=== PATIENT | female | born 1980 | race Caucasian/White ===

== ENCOUNTER → 2024-03-12 06:50 | Outpatient (REF) | payer OTHER, SELFPAY | LOC: HWWDC 06:50 | PROVIDERS: ATTENDING PHYSICIAN Family Medicine | DX: Z12.31 Encounter for screening mammogram for malignant neoplasm of breast (principal) | CPT/HCPCS: 77063; 77067 ==

== ENCOUNTER → 2025-02-25 10:16 | Outpatient (REF) | payer OTHER, SELFPAY | LOC: HWRAD 10:16 | PROVIDERS: ATTENDING PHYSICIAN Student in an Organized Health Care Education/Training Program; FAMILY PHYSICIAN Family Medicine | DX: N92.1 Excessive and frequent menstruation with irregular cycle (principal) | CPT/HCPCS: 76830; 76856 ==

== ENCOUNTER → 2025-03-11 07:03 | Outpatient (REF) | payer OTHER, SELFPAY | LOC: RAD 07:03 | PROVIDERS: FAMILY PHYSICIAN Family Medicine | DX: N94.89 Other specified conditions associated with female genital organs and menstrual cycle (principal) | CPT/HCPCS: 74177; Q9967 ==

== ENCOUNTER → 2025-03-25 07:30 | Outpatient (REF) | payer OTHER, SELFPAY | LOC: RAD 07:30 | PROVIDERS: FAMILY PHYSICIAN Family Medicine | DX: N94.89 Other specified conditions associated with female genital organs and menstrual cycle (principal) | CPT/HCPCS: 71260; Q9967 ==

== ENCOUNTER → 2025-05-21 07:45 | Outpatient (REF) | payer OTHER, SELFPAY ==
[2025-05-21 07:53] LABS: Glucose 107 mg/dl (70-99)
== END ==
LOC: PET 07:45
PROVIDERS: ATTENDING PHYSICIAN Student in an Organized Health Care Education/Training Program; REFERRING PHYSICIAN Registered Nurse Oncology
DX: C56.1 Malignant neoplasm of right ovary (principal)
CPT/HCPCS: 36415; 82947

== ENCOUNTER 2025-06-01 18:12 | Emergency (ER) | payer OTHER, SELFPAY ==
[2025-06-01 18:16] VITALS: BP 170/110
--- NOTE | 2025-06-01 19:03 | ED.GENMED ---
History of Present Illness
<Fritz Del Cid PA-C - Last Filed: 06/01/25 19:52>
General
Chief Complaint: Urinary Symptoms
Source: patient
Exam Limitations: none
Time Seen by Provider: 06/01/25 18:45
History of Present Illness
History of Present Illness:
44-year-old female presents with urinary difficulty. She had endoscopy and colonoscopy today at [facility]. Since the procedure was done at 11 she has not been able to urinate. States this happened in the past with her other surgeries. I
spoke with the GI doctor on the telephone. They were concerned about potentially deeper biopsy performed on the endoscopy. She requested we do a x-ray of her chest. Patient denies any chest pain or shortness of breath really notes bladder
fullness sensation. She has a history of ovarian cancer
Phy Exam
<Fritz Del Cid PA-C - Last Filed: 06/01/25 19:52>
Physical Exam
Physical Exam:
General: Well-appearing female no acute distress
HEENT normal cephalic atraumatic
Heart: Regular rate and rhythm
Lungs: Clear no wheeze
Abdomen is soft but distended over the suprapubic region and tender over the suprapubic region
Extremities: No cyanosis
Course
<Fritz Del Cid PA-C - Last Filed: 06/01/25 19:52>
Orders/Labs/Results
Orders:
Orders
06/01/25 18:57
Arteaga Placement- Treatment ONCE
Reason for insertion: Acute Retention
CR Chest - 2 Views Urgent
Comment:
Reason For Exam: chest pain
Vital Signs
Initial and Last Documented VS:
Initial Vital Signs
Temp Pulse Resp BP Pulse Ox
98.2 F 105 16 170/110 100
06/01/25 18:16 06/01/25 18:16 06/01/25 18:16 06/01/25 18:16 06/01/25 18:16
Last Documented Vital Signs
Temp Pulse Resp BP Pulse Ox
98.2 F 105 16 164/105 100
06/01/25 18:16 06/01/25 18:16 06/01/25 18:16 06/01/25 20:44 06/01/25 19:05
<De Dumont PA-C - Last Filed: 06/01/25 22:07>
Orders/Labs/Results
Orders:
Orders
06/01/25 18:57
Arteaga Placement- Treatment ONCE
Reason for insertion: Acute Retention
CR Chest - 2 Views Urgent
Comment:
Reason For Exam: chest pain
Vital Signs
Initial and Last Documented VS:
Initial Vital Signs
Temp Pulse Resp BP Pulse Ox
98.2 F 105 16 170/110 100
06/01/25 18:16 06/01/25 18:16 06/01/25 18:16 06/01/25 18:16 06/01/25 18:16
Last Documented Vital Signs
Temp Pulse Resp BP Pulse Ox
98.2 F 105 16 164/105 100
06/01/25 18:16 06/01/25 18:16 06/01/25 18:16 06/01/25 20:44 06/01/25 19:05
<Fritz Del Cid PA-C - Last Filed: 06/01/25 19:52>
MDM/Problems Addressed
Differential Diagnosis Includes:
Difficulty voiding since endoscopy today. I performed bladder scan at bedside which shows 689 mL of urine in the bladder. Arteaga catheter was ordered. Chest x-ray ordered on behalf of GIs request however there is no chest symptoms of breath and
she is hemodynamically stable
<Fritz Del Cid PA-C - Last Filed: 06/01/25 19:52>
*Pulse Oximetry
SaO2: 100
Oxygen Mode of Delivery: Room air
<De Dumont PA-C - Last Filed: 06/01/25 22:07>
*Pulse Oximetry
Patient hypoxic: no
*Critical Care Note
Total Time (30-74mins, 75-104mins- exclusive of procedures): Not Applicable
<De Dumont PA-C - Last Filed: 06/01/25 22:07>
Patient Management
Escalation/DeEscalation of care consider admission/obs:
Patient received in signout pending chest x-ray. chest x-ray is without any acute abnormalities. Stable for discharge and outpatient management.
<Fritz Del Cid PA-C - Last Filed: 06/01/25 19:52>
Update Note
Update Note:
Arteaga catheter placed by nursing staff over 800 mL of urine. This was left in. Will have her follow-up with her GI doctor. Chest x-ray reviewed and is without significant finding. She has no chest pain or short
ED Attending Note
<Fritz Del Cid PA-C - Last Filed: 06/01/25 19:52>
-
Portions of this chart may have been created with voice recognition software.� Occasional wrong word or��sound alike� substitutions may have occurred due to the inherent limitations of voice recognition software.
Discharge Plan
Departure
Patient Disposition: Home (Routine Discharge)
Date of Disposition: 06/01/25
Time of Disposition: 20:36
Patient with high blood pressure during this ER visit?: No
Discharge Problem:
Acute urinary retention
Instructions: How to care for a urinary catheter
Referrals:
Phuc Arriaza MD [Active, Urology]
Activity Restrictions/Additional Instructions:
Please follow-up with your doctor from the gastroenterology team or urologist for further evaluation and catheter removal
Interventions
Interventions:
*Risk Screen - Suicide Last Done: 06/01/25 18:18
*General Assessment Last Done: 06/01/25 20:46
*Neglect/Abuse Screening Last Done: 06/01/25 18:18
*ED- Fall Risk Assessment Last Done: 06/01/25 20:46
*ED COVID-19 Vaccine History Last Done: 06/01/25 20:46
*ED Influenza Vaccine History Last Done: 06/01/25 20:46
*Nursing Disposition Last Done: 06/01/25 20:46
ED-Female Genitourinary Assessment Last Done: 06/01/25 20:44
Discharge Date and Time
Discharge Date/Time: 06/01/25 20:47
Print Language: BELARUSIAN
[2025-06-01 20:44] VITALS: BP 164/105
== END 2025-06-01 20:47 | disposition home or self-care (01) ==
LOC: EMR 18:12
PROVIDERS: EMERGENCY PHYSICIAN Emergency Medicine; FAMILY PHYSICIAN Family Medicine
DX: R33.9 Retention of urine, unspecified (principal); Z85.43 Personal history of malignant neoplasm of ovary
CPT/HCPCS: 99283; 51702; 71046